=== PATIENT | female | born 1955 | race Caucasian/White ===

== ENCOUNTER 2021-03-03 14:19 | Outpatient (REF) | payer OTHER, SELFPAY | END 2021-03-03 14:20 | disposition home or self-care (01) | LOC: HO.LAB 14:19 | PROVIDERS: Visit Provider Internal Medicine | DX: Z20.822 Contact with and (suspected) exposure to COVID-19 (principal) | CPT/HCPCS: C9803; U0003; U0005 ==

== ENCOUNTER 2025-04-28 13:26 | Emergency (ER) | payer MEDICARE, SELFPAY ==
--- NOTE | ~2025-04-28 | XR_ITS ---
CLINICAL HISTORY: fall 4 view, chest and left ribs Comparison: None provided Findings: No fractures or dislocations. The lungs are unremarkable. IMPRESSION: No acute rib fractures. This document has been electronically signed by: Donte Lemus MD on 04/28/2025 14:48:02
--- NOTE | ~2025-04-28 | CT_ITS ---
CLINICAL HISTORY: L CP rad back, elevated dimer, recent fall CT angiography chest with contrast. 3D Postprocessing. Comparison: CT - CT ANGIO CHEST PE PROTOCOL - 04/28/25 17:40 EDT Findings: The heart is normal size. RV/LV ratio is normal. Calcification of the coronary vasculature. Unremarkable thoracic aorta and great vessels. No aneurysm. No pulmonary artery filling defects. The visualized thyroid and mediastinum are unremarkable. Mild ground-glass density within the left upper and lower lobes. The visualized upper abdomen is unremarkable. No acute fractures. IMPRESSION: 1. No pulmonary emboli. 2. Mild left lung pneumonia. This document has been electronically signed by: Donte Lemus MD on 04/28/2025 19:09:03
--- NOTE | 2025-04-28 13:32 | ED_ITS ---
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 She reports that 3 days ago (although initial nursing triage reports this occurred yesterday) she had a mechanical trip and fall during the morning. She fell forwards catching herself on bilateral outstretched hands but ultimately her chest it down to the ground. She felt fine after the fall and throughout the duration of that day. However yesterday she began experiencing left anterior chest pain that she feels radiate towards her back it is felt like a stabbing pain. It exacerbates with cough and deep breathing. She attempted to take Tylenol with this is not helped her pain. She denies use of anticoagulants or known coagulation disorders. She denies having struck her head with the fall. She denies any numbness or tingling to the extremities, nausea, vomiting, abdominal pain, headache, dizziness, lightheadedness, vision changes, neck pain or neck stiffness Related Data Previous Rx's ?Medication ?Instructions ?Recorded azithromycin 250 mg tablet See Rx Instructions PO .COM PLEX #6 04/28/25 tabs cefpodoxime 200 mg tablet 200 mg PO Q12H #14 tabs 04/02 06/25 Allergies Allergy/AdvReac Type Severity Reaction Status Date / Time No Known Allergies Allergy Verified 04/28/25 13:34 Review of Systems 2 Review of Systems: Yes all other systems are reviewed and are negative [facility] Past Medical History Attestation statement: The following information was validated with the patient. Source: old records reviewed Social History Social History Alcohol intake: former Smoked in Last 30 Days: No Use of substances other than those prescribed or required for medical reasons: No Advance Directives: No Advance Directives Information Provided: Yes Do you have a plan to hurt others: No Plan Physical Exam 2 Vital Signs: Vital Signs: Last Vital Signs Temp 98.3 F 04/28/25 18:00 Pulse 62 04/28/25 18:00 Resp 16 04/28/25 18:00 BP 170/78 H 04/28/25 18:00 Pulse Ox 96 04/28/25 18:00 O2 Del Method Room Air 04/28/25 18:00 BMI result Body Mass Index 25.0 Appearance: Alert.?Oriented to person, place and time. No acute distress.?Normal affect. Eyes: Pupils equal, round and reactive to light.? ENT: Pharynx normal.?? Neck: Normal inspection.? Neck supple.?? CVS: Heart sounds normal. Normal heart rate and rhythm.? Pulses normal.?? Respiratory: No respiratory distress.? Lung sounds clear to auscultation bilaterally. No ecchymosis to the chest wall. No crepitus. No palpable deformities.?? Abdomen: Soft and non-tender. Normoactive bowel sounds. Skin: Skin warm and dry.? Normal skin color.? ? Extremities: No lower extremity edema.? No calf ttp? Neuro: Moves all extremities spontaneously. Sensation intact bilaterally. No focal neuro deficits. Ambulates with normal steady gait. Course Course Course Narrative: Steffany Carrington APRN This is a rapid medical exam. Deferred additional HPI, ROS, PE to primary provider. 70 yo female with history of HTN, HLD, DM here with complaints of trip and fall landing on left chest area. No head strike or LOC. No AC therapy. Will obtain x-rays VSS Reevaluation(s) Reevaluation #1: Elevated D-dimer [address] angio of the chest for further evaluation potential pulmonary embolism additionally may detect rib fractures otherwise appreciated on x-ray imaging. CBC is without leukocytosis no significant anemia, no thrombocytopenia. No electrolyte derangement. BUN/creatinine 24/1.2 no priors available for comparison E GFR of 44. Non-anion gap hyperglycemia with random glucose of 213. LFTs unremarkable. High sensitive troponin below detectable limits, ECG revealing sinus rhythm with PACs, ventricular rate of 77, normal ROMAN, QTC 461, no ST-elevation or depression, no T-wave inversion Time: 16:51 Reevaluation #2: Patient signed out to Jacques RAMOS pending CT angio of the chest, if no evidence of PE, notable rib fracture, if pain managed I anticipate that she will otherwise be discharged home, again potentially musculoskeletal in pathology given prior injury. Time: 19:08 Reevaluation #3: The patient received in sign-out at change of shift pending CT angiography which was ordered due to chest pain after a fall. No rib fractures were noted, no evidence of PE. There was questionable left lung pneumonia. The patient does endorse a very mild cough, denies any fevers, chills, shortness of breath, sputum production. There was no leukocytosis or fever. I do not feel the patient truly has pneumonia at this time. I discussed this with the patient and family using the supervisor claims. However if she is having significant chest wall pain and shallow breathing she is at a fairly high risk of developing pneumonia. I agree to prescribe antibiotics of azithromycin and cefuroxime but I encouraged the patient to hold off on taking them unless she starts to develop signs or symptoms of pneumonia including fever, worsening cough with sputum production, shortness of breath. Time: 19:55 Medications Administered Discontinued Medications Generic Name Dose Route Start Last Admin Trade Name Freq PRN Reason Stop Dose Admin Sodium Chloride 1,000 mls @ 999 mls/hr 04/28/25 17:00 04/28/25 18:20 Ns IV 04/28/25 18:00 Infused .Q1H1M ANA Infusion Iohexol 100 ml 04/28/25 17:51 04/28/25 17:54 Iohexol 350 Mg/Ml 100 Ml Infus..Btl IV 04/28/25 17:52 65 ml ONCE ONE Administration Morphine Sulfate 2 mg 04/28/25 16:50 04/28/25 17:10 Morphine Sulfate 2 Mg/Ml Cartridge IVPUSH 04/28/25 16:51 Not Given ONCE ONE Protocol Ondansetron HCl 4 mg 04/28/25 16:50 04/28/25 17:11 Ondansetron Hcl 4 Mg/2 Ml Vial IVPUSH 04/28/25 16:51 Not Given ONCE ONE Medical Decision Making Medical Decision Making [facility] Narrative: Patient is a 70-year-old female past medical history of diabetes, hypertension, hypercholesterolemia, anxiety who presents emergency department for evaluation of left anterior chest pain described as a stabbing pain also felt in her back. Onset of pain was yesterday she did have a mechanical trip and fall the day prior but states that pain did not begin to approximately 24 hours later. Had tried acetaminophen without improvement. On examination there is no palpable deformities crepitus to the chest wall, pain is reproducible to cough deep inspiration as well as palpation. It is diffuse throughout the left anterior chest. LS CTA. She is without tachypnea tachycardia or hypoxia. XR was obtained prior to my assumption of care and is without evidence of acute fracture to the ribs, no pneumothorax, no pleural effusions, no otherwise consolidation or infiltrates it might suggest pneumonia. Given her age and comorbidities, delayed onset and pain after fall although may be inflammatory in nature to the chest wall versus possible pulmonary contusion the pleurisy, will obtain CBC to evaluate for leukocytosis/ anemia, CMP and lipase to evaluate for abnormal electrolytes /abnormal renal function/ abnormal hepatic/biliary function, EKG and troponin to evaluate for ischemia/ACS. Differential Diagnosis Differential Diagnoses: The differential diagnosis associated with the presentation includes (See narrative above) Admission/Observation Consideration of admission/observation: Escalation of care including admission/observation considered Lab Data MDM Lab Attestation statement: I reviewed the patient's lab results. 04/28/25 15:39 04/28/25 15:39 Labs: Lab Results 04/28/25 Range/Units 15:39 WBC 5.6 (4.8-10.8) X10*3/uL RBC 3.94 L (4.20-5.50) X10*6/uL Hgb 12.3 (12.0-16.0) g/dl Hct 35.9 L (37.0-47.0) % MCV 91.1 (80.0-98.0) fL MCH 31.2 (27.0-33.0) pg MCHC 34.3 (31.0-35.0) g/dl RDW 13.0 (11.0-16.0) % Plt Count 249 (160-400) X10*3/uL MPV 10.6 (9.4-12.3) fL Immature Gran % (Auto) 0.2 (0.0-0.4) % Neut % (Auto) 57.4 (45-73) % Lymph % (Auto) 29.9 (20-40) % Ellis % (Auto) 7.4 (2-11) % Eos % (Auto) 4.7 H (0-4) % Baso % (Auto) 0.4 (0-2) % Lymph # (Auto) 1.7 (1.2-4.9) X10*3/uL Ellis # (Auto) 0.4 (0.1-1.2) X10*3/uL Eos # (Auto) 0.3 (0.0-0.4) X10*3/uL Baso # (Auto) 0.0 (0.0-0.2) X10*3/uL Abs Immat Gran (auto) 0.01 (0.00-0.03) X10*3/uL Absolute Neuts (auto) 3.2 (2.0-8.3) x10*3/uL Absolute Nucleated RBC 0.000 (0.0-0.012) X10*3/uL Nucleated RBC % (auto) 0.0 (0.0-0.2) /100WBC D-Dimer High Sensitivty 358 NG/ML Sodium 140 (135-145) mmol/L Potassium 3.5 (3.3-5.1) mmol/L Chloride 102 (96-108) mmol/L Carbon Dioxide 26 (22-29) mmol/L Anion Gap 16 (12-20) BUN 24 H (9-16) mg/dL Creatinine 1.20 (0.5-1.4) mg/dL Estim Creat Clear Calc 38.1 Estimated GFR 44 Random Glucose 213 H (60-115) mg/dL Calcium 9.8 (8.4-10.2) mg/dL Magnesium 1.6 (1.6-2.6) mg/dL Total Bilirubin 0.4 (0.0-1.0) mg/dL AST 17 (5-31) U/L ALT 12 (0-31) U/L Alkaline Phosphatase 63 (39-117) U/L Troponin I High Sens < 2.7 (<3.5-17.0) ng/L B-Natriuretic Peptide 19 (<100) pg/mL Total Protein 7.6 (6.5-8.0) g/dL Albumin 4.2 (3.5-5.0) g/dL Lipase 32 (8-78) U/L Influenza Type A (PCR) NEGATIVE (Negative) Influenza Type B (PCR) NEGATIVE (Negative) RSV RNA Qual (PCR) NEGATIVE (Negative) SARS-CoV-2 RNA (RT-PCR) NEGATIVE (Negative) Independent Interpretation I performed an independent interpretation of an: EKG and Plain X-Ray (See narrative above) Radiology Impression Discussion of test interpretation with radiology: I have reviewed the radiologist's reading. Radiologist Impression: 4 view, chest and left ribs Comparison: None provided Findings: No fractures or dislocations. The lungs are unremarkable. IMPRESSION: No acute rib fractures Findings: The heart is normal size. RV/LV ratio is normal. Calcification of the coronary vasculature. Unremarkable thoracic aorta and great vessels. No aneurysm. No pulmonary artery filling defects. The visualized thyroid and mediastinum are unremarkable. Mild ground-glass density within the left upper and lower lobes. The visualized upper abdomen is unremarkable. No acute fractures. IMPRESSION: 1. No pulmonary emboli. 2. Mild left lung pneumonia. This document has been electronically signed by: Donte Lemus MD on 04/28/2025 19:09:03 Independent Historian Clinical information obtained from an independent historian. History obtained from or confirmed by: Other (Daughter) External Record Review External record reviewed: Outpatient record Chronic Conditions Patient?s care impacted by: Other (See narrative above) Discharge Plan Discharge Clinical Impression: Acute chest wall pain Patient Disposition: Home, Self-Care Instructions: Chest Wall Pain (ED) Additional Instructions: Your workup in the emergency room was reassuring. This includes your lab work, EKG, chest x-ray. The CT scan of your chest shows possible left lung pneumonia. I prescribed 2 different antibiotics for you I recommend that you hold off on taking the antibiotics unless you develop fever, increased cough with sputum production, shortness of breath or body aches. You may use ibuprofen or Tylenol for pain Prescriptions: New azithromycin 250 mg tablet See Rx Instructions .ROUTE .COMPLEX Qty: 6 0RF Rx Instructions: For 250 mg dose pack: take 500 mg today (day 1), then 250 mg for 4 days (days 2-5) cefpodoxime 200 mg tablet 200 mg PO Q12H Qty: 14 0RF Rx Instructions: must administer with a meal/food Print Language: Icelandic
[2025-04-28 13:34] VITALS: BP 158/78; PULSE 75; RESP 16; TEMP 36.7; O2SAT 100; BMI 25.0
[2025-04-28 14:00] VITALS: BP 185/84; PULSE 77; RESP 16; TEMP 36.8; O2SAT 99
--- NOTE | 2025-04-28 14:50 | ECG_ITS ---
Test Reason : CHEST PAIN Blood Pressure : */* mmHG Vent. Rate : 77 BPM Atrial Rate : 77 BPM P-R Int : 142 ms QRS Dur : 82 ms QT Int : 408 ms P-R-T Axes : 38 21 56 degrees QTcB Int : 461 ms Sinus rhythm with Premature atrial complexes Otherwise normal ECG No previous ECGs available Referred By: Edith Jeffries Electronically Signed By: JORGE ALBERTO SHAH
[2025-04-28 15:44] LABS: MANUAL DIFF FLAG NO
[2025-04-28 15:46] LABS: Basophils Percent Auto 0.4 % (0-2); Eosinophils Absolute Auto 0.3 X10*3/uL (0.0-0.4); Eosinophils Percent Auto 4.7 % (0-4); Hematocrit 35.9 % (37.0-47.0); Hemoglobin 12.3 g/dl (12.0-16.0); Imm Gran Abs Auto 0.01 X10*3/uL (0.00-0.03); Imm Gran Pct Auto 0.2 % (0.0-0.4); Lymphocytes Absolute Auto 1.7 X10*3/uL (1.2-4.9); Lymphocytes Percent Auto 29.9 % (20-40); Mean Corpuscular HGB Conc 34.3 g/dl (31.0-35.0); Mean Corpuscular Hemoglobin 31.2 pg (27.0-33.0); Mean Corpuscular Volume 91.1 fL (80.0-98.0); Mean Platelet Volume 10.6 fL (9.4-12.3); Monocytes Absolute Auto 0.4 X10*3/uL (0.1-1.2); Monocytes Percent Auto 7.4 % (2-11); Neutrophils Absolute Auto 3.2 x10*3/uL (2.0-8.3); Neutrophils Percent Auto 57.4 % (45-73); Platelet Count 249 X10*3/uL (160-400); Red Blood Count 3.94 X10*6/uL (4.20-5.50); White Blood Count 5.6 X10*3/uL (4.8-10.8)
[2025-04-28 15:58] LABS: D Dimer High Sensitivity 358 NG/ML
[2025-04-28 16:00] VITALS: BP 145/82; PULSE 60; RESP 16; TEMP 36.3; O2SAT 97
[2025-04-28 16:00] LABS: Alanine Aminotransferase 12 U/L (0-31); Albumin Level 4.2 g/dL (3.5-5.0); Alkaline Phosphatase 63 U/L (39-117); Anion Gap 16 (12-20); Aspartate Amino Transferase 17 U/L (5-31); Bilirubin Total 0.4 mg/dL (0.0-1.0); Blood Urea Nitrogen 24 mg/dL (9-16); Calcium 9.8 mg/dL (8.4-10.2); Carbon Dioxide 26 mmol/L (22-29); Chloride 102 mmol/L (96-108); Creatinine Clr Calc Pharmacy 38.1; Estimated Glomerular Filt Rate 44; Glucose Random 213 mg/dL (60-115); Lipase 32 U/L (8-78); Magnesium 1.6 mg/dL (1.6-2.6); Potassium 3.5 mmol/L (3.3-5.1); Sodium 140 mmol/L (135-145); Total Protein 7.6 g/dL (6.5-8.0)
[2025-04-28 16:08] LABS: B Type Natriuretic Peptide 19 pg/mL (<100)
[2025-04-28 16:11] LABS: Troponin-I High Sensitivity < 2.7 ng/L (<3.5-17.0)
[2025-04-28 16:23] LABS: Influenza A PCR NEGATIVE (Negative); Influenza B PCR NEGATIVE (Negative); Resp Syncy Virus RNA Qual PCR NEGATIVE (Negative); SARS COV2 PCR INHOUSE NEGATIVE (Negative)
--- NOTE | 2025-04-28 16:41 | PC.NURSE ---
pain medication requested for pt
[2025-04-28] MEDS: 0.9 % Sodium Chloride 1,000 ML 999 ML IV (17:19)
[2025-04-28] MEDS: iohexoL 350 MG/ML 100 ML INFUS..BTL IV (17:54)
[2025-04-28 18:00] VITALS: BP 170/78; PULSE 62; RESP 16; TEMP 36.8; O2SAT 96
[2025-04-28 20:02] VITALS: BP 170/78; PULSE 62; RESP 16; TEMP 36.8; O2SAT 96
== END 2025-04-28 20:03 | disposition home or self-care (01) ==
PROVIDERS: Nurse Practitioner Family; Emergency Provider Emergency Medicine
DX: R07.89 Other chest pain (principal); M54.50 Low back pain, unspecified; R05.9 Cough, unspecified; I10 Essential (primary) hypertension; R11.0 Nausea; R06.02 Shortness of breath; Z03.818 Encounter for observation for suspected exposure to other biological agents ruled out; Z79.899 Other long term (current) drug therapy
CPT/HCPCS: 0241U; 36415; 71101; 71275; 80053; 83690; 83735; 83880; 84484; 85025; 85379; 93005; 96360; 99284; 99285; Q9967

== ENCOUNTER → 2025-04-28 13:36 | Outpatient (BNV) | payer MEDICARE, SELFPAY | PROVIDERS: Emergency Provider Emergency Medicine; Visit Provider Radiology Diagnostic Radiology | DX: R07.9 Chest pain, unspecified (principal); R79.89 Other specified abnormal findings of blood chemistry; R07.89 Other chest pain; W19.XXXA Unspecified fall, initial encounter | CPT/HCPCS: 71101; 71275 ==

== ENCOUNTER → 2025-04-28 14:50 | Outpatient (BNV) | payer MEDICARE, SELFPAY | PROVIDERS: Emergency Provider Emergency Medicine; Visit Provider Internal Medicine | DX: I49.1 Atrial premature depolarization (principal) | CPT/HCPCS: 93010 ==